=== PATIENT | male | born 2000 | race Hispanic/Latino ===

== ENCOUNTER 2021-09-17 12:57 | Emergency (ER) | payer MEDICAID, SELFPAY ==
[2021-09-17] MEDS ORDERED: Ketorolac Tromethamine 30 MG/ML VIAL ONE (13:05)
[2021-09-17] MEDS ORDERED: Acetaminophen 500 MG TAB ONE (13:05)
[2021-09-17] MEDS ORDERED: Dexamethasone 4 MG TAB ONE (13:17)
[2021-09-17 14:09] LABS: SARS-CoV-2 NAA Rapid Test Not Detected (NotDetected)
== END 2021-09-17 14:41 | disposition home or self-care (01) ==
LOC: ERS 12:57
DX: R50.9 Fever, unspecified (principal); J02.9 Acute pharyngitis, unspecified
CPT/HCPCS: 0240U; 87081; 87430; 96372; 99283; J1885; J8540

== ENCOUNTER 2021-09-19 09:18 | Emergency (ER) | payer SELFPAY | END 2021-09-19 10:05 | disposition home or self-care (01) | LOC: ERS 09:18 | DX: J20.9 Acute bronchitis, unspecified (principal); R13.10 Dysphagia, unspecified | CPT/HCPCS: 99283 ==